=== PATIENT | male | born 1955 | race Caucasian/White ===

== ENCOUNTER → 2020-01-26 | Outpatient (CLI) | payer OTHER ==
--- NOTE | 2020-01-26 16:18 | RAD ---
EXAM: Lumbar spine, 3 views; left hip, 2 views. HISTORY: Pain. COMPARISON: None. FINDINGS: Lumbar spine: 3 views of the lumbar spine are obtained. There is grade 1 anterolisthesis of L5 on S1 with bilateral pars defects. The vertebral bodies are normal in height and the disc spaces are preserved. There is multilevel endplate remodeling. The L1 transverse processes are can gently nonfused, an incidental finding. There is a right hip arthroplasty. Left hip: Frontal and frog-leg views of the left hip are obtained. There is no acute fracture, location or dislocation. There is an os acetabulum. There is serpiginous sclerosis within the superior femoral head due to avascular necrosis. No cortical collapse is seen. IMPRESSION: 1. Multilevel degenerative change involving the lumbar spine. 2. Grade 1 anterolisthesis with pars defects at L5-S1. 3. 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 4. No acute osseous finding. Electronically signed by: Jaylyn Motley MD (01/26/2020 4:15 PM) [facility]
== END ==
LOC: RAD 13:27
PROVIDERS: ATTEND Anesthesiology Pain Medicine
DX: M47.816 Spondylosis without myelopathy or radiculopathy, lumbar region (principal); M43.17 Spondylolisthesis, lumbosacral region; M87.852 Other osteonecrosis, left femur; M25.552 Pain in left hip
CPT/HCPCS: 72100; 73502